=== PATIENT | female | born 1970 | race Caucasian/White ===

== ENCOUNTER 2018-08-31 08:01 | Emergency (ER) | payer OTHER ==
[2018-08-31 08:48] LABS: % BASOPHILS 0.9 % (0.0-2.0); % EOSINOPHILS 2.8 % (0.0-5.0); % LYMPHOCYTES 34.3 % (20.0-50.0); % MONOCYTES 6.6 % (2.0-10.0); % NEUTROPHILS 55.4 % (40.0-80.0); BASOPHILE ABSOLUTE 0.1 Th/cumm (0-0.2); EOSINOPHILE ABSOLUTE 0.2 Th/cmm (0.1-0.4); HEMATOCRIT 37.7 % (41.0-60); HEMOGLOBIN 12.4 gm/dL (12-16); LYMPHOCYTE ABSOLUTE 2.3 Th/cmm (1.5-3.0); MEAN CELL VOLUME 89.4 fl (81-100); MEAN CORPUSCULAR HEMOGLOBIN 29.5 pg (27.0-31.0); MEAN PLATELET VOLUME 6.8 fl; MONOCYTE ABSOLUTE 0.4 Th/cmm (0.3-1.0); NEUTROPHILE ABSOLUTE 3.8 Th/cmm (1.8-8.0); PLATELET COUNT 355 Th/cmm (150-400); RED BLOOD COUNT 4.22 Mil/cmm (3.80-5.10); RED CELL DISTRIBUTION WIDTH 13.5 % (11.5-20.0); WHITE BLOOD COUNT 6.8 Th/cmm (4.8-10.8)
--- NOTE | 2018-09-05 14:31 | ED Physician Chart ---
ED Chief Complaint/HPI - Patient Information Date Seen:: 08/31/18 Time Seen:: 08:18 Chief Complaint:: chronic abdominal wound and sinus tract History of Present Illness:: chronic abdominal wound in a patient who has had a previous tummy tuck and paid gracia for it. According to patient, she had surgery with Dr. Garzon in 03/[address] Garzon recently retired and told patient just to go to the ER if she ever developed any problems. She last saw Dr. Garzon in 07/2018. She then went to see. Dr. Carroll for follow up for this chronic abdominal wound with a sinus tract. She saw him in . After the visit, Dr. Carroll's office called her and said that they do not take her insurance. INSTEAD OF CALLING HER INSURANCE COMPANY AND ASKING FOR A REFERRAL TO A SURGEON FOR FOLLOW UP FOR THIS CHRONIC ABDOMINAL WOUND WITH A SINUS TRACT OF SEVERAL MONTH'S DURATION, PATIENT DECIDED TO SHOW UP TODAY IN THE EMERGENCY ROOM TODAY. She states that she has had colored discharge come from the chronic sinus tract. There is not even a single drop of any fluid whatsoever on the dressing. Patient denies any fevers, chills, nausea, vomiting. Patient claims that she had a single loose stool on the previous morning to presentation. PATIENT REPORTS TO THE EMERGENCY ROOM TODAY FOR THIS NON-EMERGENT PROBLEM KNOWING FULL WELL THAT THIS IS NOT AN EMERGENT SITUATION IN THE LEAST. Allergies:: Allergies Allergy/AdvReac Type Severity Reaction Status Date / Time No Known Allergies Allergy Verified 08/31/18 08:15 Historian:: Patient Review:: Nurse's Note Reviewed ED Review of Systems - Review of Systems General/Constitutional: No fever, No chills, No weight loss, No weakness, No diaphoresis, No edema, No loss of appetite Skin: Other (chronic abdominal wound with sinus tract (several months old) without a single drop on band-aid covering it) Head: No headache, No light-headedness Eyes: No loss of vision, No pain, No diplopia ENT: No earache, No nasal drainage, No sore throat, No tinnitus Neck: No neck pain, No swelling, No thyromegaly, No stiffness, No mass noted Cardio Vascular: No chest pain, No palpitations, No PND, No orthopnea, No edema Pulmonary: No SOB, No cough, No sputum, No wheezing GI: No nausea, No vomiting, Diarrhea, No pain, No melena, No hematochezia, No constipation, No hematemesis G/U: No dysuria, No frequency, No hematuria Musculoskeletal: No bone or joint pain, No back pain, No muscle pain Endocrine: No polyuria, No polydipsia Psychiatric: No prior psych history, No depression, No anxiety, No suicidal ideation Hematopoietic: No bruising, No lymphadenopathy Allergic/Immuno: No urticaria, No angioedema Neurological: No syncope, No focal symptoms, No weakness, No paresthesia, No headache, No seizure, No dizziness, No confusion, No vertigo ED Past Medical History - Past Medical History Obtainable: Yes Past Medical History: Other (prior tummy tuck; prior abdominal abscess nearly a year ago; chronic abdominal wound with sinus tract) Surgical History: other (prior tummy tuck; prior abdominal abscess nearly a year ago; chronic abdominal wound with sinus tract) Family Medical History - Family Member Mother History Unknown: Yes ED Physical Exam - Physical Examination General/Constitutional: Awake, Well-developed, well-nourished, Alert, No distress, GCS 15, Non-toxic appearing, Ambulatory Head: Atraumatic Eyes: Lids, conjuctiva normal, PERRL, EOMI Skin: No rash, No skin lesions, No ecchymosis, Well hydrated, No lymphadenopathy Other Skin comments:: prior tummy tuck; prior abdominal abscess nearly a year ago; chronic abdominal wound with sinus tract without a single drop of any fluid on the band-aid covering the chronic sinus tract. ENMT: External ears, nose nl Neck: Nontender, No nuchal rigidity, No stridor Respiratory: Nl effort/Exclusion, Clear to Auscultation, No Wheeze/Rhonchi/Rales Cardio Vascular: RRR, No murmur, gallop, rubs, NL S1 S2 GI: No tenderness/rebounding/guarding, No organomegaly, No hernia, Normal BS's, Nondistended, No mass/bruits Other GI comments:: tummy tuck scar para umbilical scar. CHRONIC, OLD SINUS TRACT, THE SIZE OF A PENCIL IN WIDTH. NOT ONE DROP OF ANY LIQUID WHATSOEVER ON THE SOLITARY BAND-AID THAT THE PAID HAS COVERING HER CHRONIC, OLD SINUS TRACT, THE SIZE OF A PENCIL IN WIDTH. NO CREPITANCE, NO PERITONEAL SIGNS. NOT ONE BIT OF TENDERNESS ON EXAM. NORMAL BOWEL SOUNDS. : No CVA tenderness Extremities: No tenderness or effusion Neuro/Psych: Alert/oriented, Normal motor strength, Judgement/insight normal, Normal gait, No focal deficits Misc: Normal back, No paraspinal tenderness ED Labs/Radiology/EKG Results - Lab Results Results: Laboratory Tests 08/31/18 08:40 WBC 6.8 RBC 4.22 Hgb 12.4 Hct 37.7 L MCV 89.4 MCH 29.5 MCHC Differential 33.0 RDW 13.5 Plt Count 355 MPV 6.8 Neutrophils % 55.4 Lymphocytes % 34.3 Monocytes % 6.6 Eosinophils % 2.8 Basophils % 0.9 ED Assessment - Assessment General Assessment: I offered to replace the band-aid for the patient which was completely dry. She refused. I spoke with Dr. Carroll who informed me that she doesn't take her insurance. 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 PATIENT REPORTS TO THE EMERGENCY ROOM TODAY FOR THIS NON-EMERGENT PROBLEM KNOWING FULL WELL THAT THIS IS NOT AN EMERGENT SITUATION IN THE LEAST. ED Septic Shock - . Is Septic Shock (SBP<90, OR Lactate>4 mmol\L) present?: No ED Reassessment (Disposition) - Reassessment Reassessment Condition:: Unchanged - Diagnosis Diagnosis:: NON-EMERGENT VISIT FOR A CHRONIC ABDOMINAL WOUND AND A CHRONIC SINUS TRACT WITH NO EVIDENCE OF ANY FLUID WHATSOEVER ON THE SOLITARY BAND-AID THAT IS COVERING THE CHRONIC SINUS TRACT. PATIENT MENTIONED THAT SHE MADE AN APPOINTMENT FOR THE FOLLOWING DAY WITH HER PRIMARY CARE PHYSICIAN (WHICH IS WHAT SHE SHOULD HAVE DONE IN THE FIRST PLACE INSTEAD OF COMING TO THE EMERGENCY ROOM TODAY FOR NON-EMERGENT PROBLEM). She was told that her infection cell count is normal and that I will not be placing her on any antibiotics at all since there is no indication to do so: no s/s of infection, no fluid; no tenderness and the fact that she had a solitary loose bowel movement the day prior. PATIENT REPORTS TO THE EMERGENCY ROOM TODAY FOR THIS NON-EMERGENT PROBLEM KNOWING FULL WELL THAT THIS IS NOT AN EMERGENT SITUATION IN THE LEAST. One time of a loose bowel movement. Patient given prescriptions for culture and sensitivity and clostridium difficile toxin if the loose bowel movements continue. - Aftercare/Follow up Instructions Aftercare/Follow-Up Instructions:: Refer to Discharge Instructions - Patient Disposition Discharge/Transfer:: Home Condition at Disposition:: Stable, Unchanged
== END 2018-08-31 09:33 | disposition home or self-care (01) ==
LOC: ER 08:01
DX: T81.89XA Other complications of procedures, not elsewhere classified, initial encounter (principal); J32.9 Chronic sinusitis, unspecified
CPT/HCPCS: 36415-UA; 85025-TC; Z7502